=== PATIENT | male | born 1960 | race Caucasian/White ===

== ENCOUNTER → 2019-01-31 | Day surgery (SDC) | payer BC ==
[~2019-01-31] MED LIST: MIDAZOLAM HCL 2 MG/2 ML VIAL ONE; PROPOFOL IV EMULSION 10 MG/ML 20 ML VIAL ONE
[2019-01-31 12:40] VITALS: BP 121/72
--- NOTE | 2019-01-31 17:13 | Operative Report ---
DATE OF PROCEDURE: 01/31/2019 SURGEON: Darrian Alfred MD PROCEDURE PERFORMED: Esophagogastroduodenoscopy. PREOPERATIVE DIAGNOSES: Intractable vomiting, abdominal pain. POSTOPERATIVE DIAGNOSES: Hiatal hernia with a reflux esophagitis and gastritis. PREOPERATIVE MEDICATIONS: Consisted of IV sedation administered and MAC anesthesia. PROCEDURE IN DETAIL: Using an [employer] video gastroscope was inserted in the patient's oropharynx, advanced to hypopharynx and down to the esophagus. The mucosa in the esophagus was normal until we got down to the GE junction. There was a small hiatal hernia was seen sliding type with a reflux esophagitis. The stomach was entered and insufflated with air. The mucosa present in the cardia, fundus, body, and antrum was viewed. There was evidence of gastritis, but no ulcerations. Biopsies were obtained in the fundus and antrum looking for the H. pylori bacterial infection. The motility was normal. The pylorus was visualized and entered. The duodenal bulb and postbulbar duodenum were found to be within normal limits. The endoscope was then withdrawn back into stomach. Retroflexed view of the cardia and fundus below was normal except for some gastritis. The endoscope was placed back in the body of the stomach and then slowly withdrawn back into the esophagus, hypopharynx, oropharynx and out of the patient's mouth and the procedure was ended. In conclusion, we have findings of a hiatal hernia with a reflux esophagitis and gastritis. Darrian Alfred MD SAF/MODL /[id number]
== END | disposition home or self-care (01) ==
LOC: OR 10:06
PROVIDERS: ATTEND Internal Medicine Gastroenterology
DX: B18.2 Chronic viral hepatitis C (principal); K21.0 Gastro-esophageal reflux disease with esophagitis; R63.0 Anorexia; R63.4 Abnormal weight loss; R11.12 Projectile vomiting; K74.60 Unspecified cirrhosis of liver; Z88.5 Allergy status to narcotic agent; L02.415 Cutaneous abscess of right lower limb; R11.2 Nausea with vomiting, unspecified; K44.9 Diaphragmatic hernia without obstruction or gangrene
CPT/HCPCS: 43239; J2250; J2704